=== PATIENT | male | born 1990 | race Caucasian/White ===

== ENCOUNTER 2025-08-14 12:50 | Emergency (ER) | payer OTHER, MEDICAID, SELFPAY ==
[2025-08-14 13:01] VITALS: BP 171/112; PULSE 69; RESP 18; TEMP 36.9; O2SAT 96; BMI 37.4
--- NOTE | 2025-08-14 13:09 | ED_ITS ---
HPI - Dental/Oral <Cheryl Billy PA-C - Last Filed: 08/14/25 13:32> General Chief complaint: Dental/Oral Stated complaint: Possible tooth infection Time Seen by Provider: 08/14/25 13:08 Source: patient Mode of arrival: Ambulatory History of Present Illness HPI Narrative: Mr. Ugarte is a pleasant 35-year-old male with a past medical history of hypertension, currently on medication, who presents to the emergency department for left lower dental pain x1 day, concerned for infection. Patient states he has a history of poor dentition, had a left lower molar pulled many years ago, he started having pain and swelling of this area last night. No fevers, chills, flu-like symptoms, chest pain, shortness of breath. His pain is not severe but he is worried about infection the swelling. He does not currently have a primary care doctor, he has been out of his amlodipine 10 mg for the last 3 months. Related Data Previous Rx's ?Medication ?Instructions ?Recorded amlodipine 10 mg tablet 10 mg PO DAILY 30 days #30 t abs 08/14/25 amoxicillin 875 mg-potassium 1 tab PO Q12H 10 days #20 tabs 08/14/25 clavulanate 125 mg tablet chlorhexidine gluconate 0.12 % 15 ml buccal DAILY #120 mL 08/14/25 mouthwash (Peridex) Allergies Allergy/AdvReac Type Severity Reaction Status Date / Time No Known Drug Allergies Allergy Verified 08/14/25 13:01 Review of Systems <Cheryl Billy PA-C - Last Filed: 08/14/25 13:32> Review of Systems ROS Unobtainable: All systems reviewed & are unremarkable except as noted in HPI and below Patient History <Cheryl Billy PA-C - Last Filed: 08/14/25 13:32> Social History Smoking Status: Never smoker Smoking Status: Never smoker Exam <Cheryl Billy PA-C - Last Filed: 08/14/25 13:32> Narrative Exam Narrative: GENERAL: 35 year old patient appears stated age. Well-developed patient, in no acute distress. HEAD: Atraumatic. Normocephalic. EYES: No scleral icterus. No injection or drainage. ENT: Tenderness to palpation of the gingiva behind tooth #19. No fluctuance or induration, there is erythema. No submandibular swelling, floor of the mouth is soft, oropharynx is widely patent, uvula is midline. Multiple dental caries throughout. NECK: Trachea midline. Cervical ROM intact. No neck swelling, no submandibular edema or tenderness. CARDIOVASCULAR: Regular rate RESPIRATORY: ?Nonlabored respirations. ?Speaking in clear, full sentences. ? NEURO: AOx3. ?Clear speech. ?Moves all 4 extremities appropriately. SKIN: No rash or erythema of visible areas Initial Vital Signs Initial Vital Signs: Vital Signs Temperature 98.4 F 08/14/25 13:01 Pulse Rate 69 08/14/25 13:01 Respiratory Rate 18 08/14/25 13:01 Blood Pressure 171/112 H 08/14/25 13:01 Pulse Oximetry 96 08/14/25 13:01 Oxygen Delivery Method Room Air 08/14/25 13:01 <Mounika Leon DO - Last Filed: 08/15/25 07:58> Initial Vital Signs Initial Vital Signs: Vital Signs Temperature 98.4 F 08/14/25 13:01 Pulse Rate 69 08/14/25 13:01 Respiratory Rate 18 08/14/25 13:01 Blood Pressure 171/112 H 08/14/25 13:01 Pulse Oximetry 96 08/14/25 13:01 Oxygen Delivery Method Room Air 08/14/25 13:01 Course <Cheryl Billy PA-C - Last Filed: 08/14/25 13:32> Vital Signs Vital signs: Vital Signs - 8 hr 08/14/25 13:01 Temperature 98.4 F Pulse Rate 69 Respiratory Rate 18 Blood Pressure 171/112 H Pulse Oximetry 96 Oxygen Delivery Method Room Air <DO Lennox Moreno Last Filed: 08/15/25 07:58> Vital Signs Vital signs: Vital Signs - 8 hr 08/14/25 13:01 Temperature 98.4 F Pulse Rate 69 Respiratory Rate 18 Blood Pressure 171/112 H Pulse Oximetry 96 Oxygen Delivery Method Room Air MDM - Dental/Oral <Cheryl Billy PA-C - Last Filed: 08/14/25 13:32> MDM Narrative Medical decision making narrative: 35-year-old male with a past medical history of hypertension, currently on medication, who presents to the emergency department for left lower dental pain x1 day, concerned for infection. Differential diagnosis includes but is not limited to dental abscess, pulpitis, dental angelia, gingivitis, etc. On exam patient is in no acute distress, nontoxic appearing, vital signs appropriate except for elevated blood pressure. Patient does have a history of hypertension, has been out of his amlodipine 10 mg since May when he moved to this area. He has not experiencing any chest pain, lightheadedness, dizziness, visual disturbance, shortness of breath. He is however having left lower dental tenderness with mild swelling since yesterday concerning for infection. He had tooth number 18 pulled many years ago, this is the location he is now experiencing some pain and swelling. He is chronic poor dentition, we will try to follow up with a dentist. He has no induration or fluctuance but does have tenderness and swelling of the gingiva, we will treat with Augmentin b.i.d. times 10 days in addition to Peridex mouthwash. Recommended the use of ibuprofen and acetaminophen alternating for pain in addition to topical Orajel, patient denies need for anything for pain at this time. Discussed the importance of follow up with PCP for blood pressure and dentist for dental pain, we will refill his amlodipine at this time, recommended daily blood pressure monitoring, strict ER return precautions. Patient verbalized understanding of all information agreeable with the plan. He is ambulatory and stable for discharge home. Discharge Plan Departure Patient Disposition: Home Clinical Impression: Dental infection, Pain, dental, Elevated blood pressure reading Instructions: Tooth Abscess, DI for Dental Pain Activity Restrictions/Additional Instructions: Dear Mr. Ugarte, Thank you for coming to the emergency department. Today you were evaluated for left lower dental pain. At this time I am concerned that you have an infection in this area, please complete the full course of antibiotics. Please use the prescribed mouthwash. I have also refilled her blood pressure medication, please follow up with the primary care doctor for continued blood pressure management. It is helpful if you take your blood pressure daily, right down this value, and bring it with you to your primary care doctor's appointment. Please follow up with a dentist as soon as possible for further management. Use ibuprofen, Tylenol, Orajel as needed for pain. Please return to the emergency department immediately if you develop new or worsening symptoms, fevers, swelling making it difficult to speak, swallow breathe or any other concerns. Please take Ibuprofen (Motrin/Advil) or Acetaminophen (Tylenol) for pain. These are available over the counter. You may take Ibuprofen 600 mg every 8 hours with food for pain. You may also take Acetaminophen 650 mg every 4-6 hours for pain. Do not exceed 3000 mg of Tylenol a day as this can cause liver damage. Do not drink alcohol with either of these medications. Please follow up with your primary care doctor within the next 2-3 days for ER follow-up. (If you do not have a PCP you can call [phone]. ?to schedule an appointment with an [facility] Primary Care Provider) IF YOU DEVELOP ANY NEW OR WORSENING SYMPTOMS, RETURN TO THE ER! Please read the attached instructions, they highlight more specific treatments and interventions for you at home. Thank you for letting me participate in your care, Cheryl Billy PA-C Prescriptions: New amoxicillin-pot clavulanate 875-125 mg tablet 1 tab PO Q12H 10 Days Qty: 20 0RF amlodipine 10 mg tablet 10 mg PO DAILY 30 Days Qty: 30 1RF chlorhexidine gluconate [Peridex] 0.12 % mouthwash 15 ml buccal DAILY Qty: 120 0RF Stand Alone Forms: Patient Portal/API ED Sign-out <Mounika Leon DO - Last Filed: 08/15/25 07:58> Cosign ED Attending Carey Attestation: I was available for consultation.
== END 2025-08-14 13:33 | disposition home or self-care (01) ==
PROVIDERS: Emergency Provider Physician Assistant
DX: K08.89 Other specified disorders of teeth and supporting structures (principal); K04.7 Periapical abscess without sinus; I10 Essential (primary) hypertension
CPT/HCPCS: 99281

== ENCOUNTER 2025-10-01 20:00 | Emergency (ER) | payer OTHER, MEDICAID, SELFPAY ==
[2025-10-01 20:28] VITALS: BP 172/110; PULSE 71; RESP 16; TEMP 36.4; O2SAT 96; BMI 39.5
== END 2025-10-01 22:34 | disposition left against medical advice (07) ==
PROVIDERS: Emergency Provider Emergency Medicine
DX: Z53.21 Procedure and treatment not carried out due to patient leaving prior to being seen by health care provider (principal)
CPT/HCPCS: 99281

== ENCOUNTER 2025-10-02 11:34 | Emergency (ER) | payer OTHER, MEDICAID, SELFPAY ==
[2025-10-02 11:51] VITALS: BP 194/110; PULSE 67; RESP 16; TEMP 36.3; O2SAT 98; BMI 36.9
--- NOTE | 2025-10-02 11:58 | ED.DENTAL ---
HPI - Dental/Oral <Hayder Gonzalez PA-C - Last Filed: 10/02/25 12:05> General Chief complaint: Dental/Oral Stated complaint: dental pain x 3 days Time Seen by Provider: 10/02/25 11:54 Source: patient Mode of arrival: Ambulatory History of Present Illness HPI Narrative: 35-year-old male with past medical history hypertension presents to the ED with dental pain for a few days. Patient is pointing in the region of teeth 6,7,8, 26,27,28. Patient states he historically has bad dentition and has been advised by his last dentist to have several teeth extracted. Patient recently moved to the area, does not have a new dentist, however has an appointment scheduled with the dentist for the 11 of October. No fever, chills, discharge. Patient endorses excruciating pain that is on touched by Tylenol, ibuprofen. Teeth map:  1. 2. Related Data Previous Rx's ?Medication ?Instructions ?Recorded amlodipine 10 mg tablet 10 mg PO DAILY 30 days #30 tabs 08/14/25 chlorhexidine gluconate 0.12 % 15 ml buccal DAILY #120 mL 08/14/25 mouthwash (Peridex) amoxicillin 875 mg-potassium 1 tab PO Q12H 14 days #28 tabs 10/02/25 clavulanate 125 mg tablet oxycodone-acetaminophen 5 mg-325 1 tab PO Q6H PRN pain #12 tabs 10/02/25 mg tablet (Percocet) Allergies Allergy/AdvReac Type Severity Reaction Status Date / Time No Known Drug Allergies Allergy Verified 10/02/25 11:51 Review of Systems <Hayder Gonzalez PA-C - Last Filed: 10/02/25 12:05> Constitutional Constitutional: Denies chills, Denies fatigue, Denies fever(s), Denies frequent falls, Denies lethargy and Denies weakness Eyes Eyes: Denies change in vision, Denies eye discharge, Denies irritation and Denies loss of vision ENT Ears, Nose, Mouth, and Throat: Denies change in voice, Reports dental pain, Denies dizziness, Denies neck pain, Denies sore throat and Denies throat swelling Cardiovascular Cardiovascular: Denies chest pain, Denies irregular heart rhythm, Denies lightheadedness, Denies palpitations, Denies dyspnea, Denies dyspnea on exertion and Denies orthopnea Respiratory Respiratory: Denies cough, Denies dyspnea, Denies dyspnea on exertion and Denies wheezing Gastrointestinal Gastrointestinal: Denies abdominal pain, Denies change in bowel habits, Denies diarrhea, Denies nausea and Denies vomiting Musculoskeletal Musculoskeletal: Denies neck pain and Denies numbness Integumentary/Breasts Skin/Breast: Denies pruritus, Denies erythema, Denies rash and Denies wounds Neurologic Neurologic: Denies behavioral changes, Denies confusion, Denies dizziness, Denies frequent falls, Denies loss of vision, Denies numbness and Denies weakness Psychiatric Psychiatric: Denies anxiety, Denies behavioral changes, Denies confusion, Denies depression, Denies homicidal ideation and Denies suicidal ideation Endocrine Endocrine: Denies fatigue, Denies flushing and Denies palpitations Hematologic/Lymphatic Hematologic/Lymphatic: Denies easy bruising Allergic/Immunologic Allergic/Immunologic: Denies urticaria, Denies throat swelling and Denies wheezing Patient History <Hayder Gonzalez PA-C - Last Filed: 10/02/25 12:05> Social History Smoking Status: Current every day smoker Smoking Status: Current every day smoker tobacco type: cigarettes and vaping Exam <Hayder Gonzalez PA-C - Last Filed: 10/02/25 12:05> Narrative Exam Narrative: Const General:?cooperative, healthy appearing and comfortable [facility] Head:?normal to inspection Ears:?hearing grossly normal bilaterally Nose:?external nose normal Face and sinus:?normal facial exam and sinuses nontender Mouth:?oral mucosae normal; poor dentition; no tenderness to palpation of the teeth, no discharge; several teeth appear to be cracked Throat:?posterior oropharynx normal; airway patent Eyes General:?appearance normal, both eyes and all related structures Neck Neck:?normal visual inspection and no lymphadenopathy noted Resp Effort & Inspection:?normal respiratory effort Auscultation:?clear to auscultation bilaterally Cardio Rate:?regular rate Rhythm:?regular rhythm Neuro General:?patient alert, patient awake and patient oriented x3 Initial Vital Signs Initial Vital Signs: Vital Signs Temperature 97.3 F L 10/02/25 11:51 Pulse Rate 67 10/02/25 11:51 Respiratory Rate 16 10/02/25 11:51 Blood Pressure 194/110 H 10/02/25 11:51 Pulse Oximetry 98 10/02/25 11:51 Oxygen Delivery Method Room Air 10/02/25 11:51 <Howard Valdez MD - Last Filed: 10/02/25 13:47> Initial Vital Signs Initial Vital Signs: Vital Signs Temperature 97.3 F L 10/02/25 11:51 Pulse Rate 67 10/02/25 11:51 Respiratory Rate 16 10/02/25 11:51 Blood Pressure 194/110 H 10/02/25 11:51 Pulse Oximetry 98 10/02/25 11:51 Oxygen Delivery Method Room Air 10/02/25 11:51 Course <Hayder Gonzalez PA-C - Last Filed: 10/02/25 12:05> Orders Ordered: Discontinued Medications Oxycodone/Acetaminophen (Oxycodone/Acetaminophen 5/325 Tablet) 1 tab PO NOW ONE Stop: 10/02/25 11:55 Last Admin: 10/02/25 12:00 Dose: 1 tab Documented By: ELIZABETH Vital Signs Vital signs: Vital Signs - 8 hr 10/02/25 11:51 Temperature 97.3 F L Pulse Rate 67 Respiratory Rate 16 Blood Pressure 194/110 H Pulse Oximetry 98 Oxygen Delivery Method Room Air <Howard Valdze MD - Last Filed: 10/02/25 13:47> Orders Ordered: Discontinued Medications Oxycodone/Acetaminophen (Oxycodone/Acetaminophen 5/325 Tablet) 1 tab PO NOW ONE Stop: 10/02/25 11:55 Last Admin: 10/02/25 12:00 Dose: 1 tab Documented By: ELIZABETH Vital Signs Vital signs: Vital Signs - 8 hr 10/02/25 11:51 Temperature 97.3 F L Pulse Rate 67 Respiratory Rate 16 Blood Pressure 194/110 H Pulse Oximetry 98 Oxygen Delivery Method Room Air MDM - Dental/Oral <Hayder Gonzalez PA-C - Last Filed: 10/02/25 12:05> MDM Narrative Medical decision making narrative: 35-year-old male with past medical history hypertension presents to the ED with dental pain for a few days. Concern for dental abscess versus cracked teeth versus dental caries versus other. Will start antibiotics. Prescribed pain meds. Patient agrees to follow-up with his dentist as scheduled on the 11 of October. ED return precautions discussed with patient. Patient verbalized understanding. Medical records reviewed: Yes Discharge Plan Departure Patient Disposition: Home Clinical Impression: Toothache Instructions: DI for Dental Pain Activity Restrictions/Additional Instructions: You were evaluated in the emergency department today for dental pain. It is possible that your symptoms are likely due to an infection versus cracked teeth. It is important for you to see a dentist as soon as possible for further evaluation. You are being started on antibiotics and pain medication. Please follow-up with your primary care doctor as well as soon as possible. Return to the ED if you have worsening symptoms. Prescriptions: New oxycodone-acetaminophen [Percocet] 5-325 mg tablet 1 tab PO Q6H PRN (Reason: pain) Qty: 12 0RF amoxicillin-pot clavulanate 875-125 mg tablet 1 tab PO Q12H 14 Days Qty: 28 0RF No Action amlodipine 10 mg tablet 10 mg PO DAILY 30 Days Qty: 30 1RF chlorhexidine gluconate [Peridex] 0.12 % mouthwash 15 ml buccal DAILY Qty: 120 0RF Stand Alone Forms: Patient Portal/API ED Sign-out <Howard Valdez MD - Last Filed: 10/02/25 13:47> [facility] I was immediately available in the department for consultation. ?This documentation has been reviewed and I agree with assessment and plan. Supervised by Howard Valdez MD
== END 2025-10-02 12:10 | disposition home or self-care (01) ==
PROVIDERS: Emergency Provider Student in an Organized Health Care Education/Training Program
DX: K08.89 Other specified disorders of teeth and supporting structures (principal)
CPT/HCPCS: 99283